=== PATIENT | female | born 1945 | race Caucasian/White ===

== ENCOUNTER 2017-12-26 21:56 | Emergency (ER) | payer MEDICARE, MEDICAID ==
[2017-12-26] MEDS ORDERED: METHYLPREDNISOLONE PF 125MG/VIAL IVPB ONE (22:22)
[2017-12-26] MEDS ORDERED: IPRATROPIUM/ALBUTEROL (0.5MG/3MG) NEB INH ONE (22:22)
--- NOTE | 2017-12-26 22:29 | Emergency Department Record ---
History of Present Illness - General Chief Complaint: Cough Stated Complaint: COUGH,BEBA,LOW GRADE FEAVER Time Seen by Provider: 12/26/17 22:22 Source: Patient, Family Mode of Arrival: Wheelchair Limitations: Altered mental status - History of Present Illness Initial Comments: 72 yo female presents to ED for progressively for the past 4-5 days. Family at the bedside reports cough symptoms as well, however history is limited due to dementia. Patient was given a puff of albuterol at her [facility] home, but was unsure how to use the device and delivery is questionable. MD Complaint: Cough Onset/Timin -: Days(s) Severity: Moderate Consistency: Constant Improves With: Nothing Worsens With: Nothing Treatments Prior to Arrival: Other (albuterol) - Related Data Home Medications Medication Instructions Recorded Confirmed Last Taken Albuterol Sulfate [Proair Hfa] 1 - 2 puff IH .EVERY 4-6 HOURS PRN 12/26/1712/26 Unknown Alendronate Sodium 70 mg PO WEEKLY 12/26/17 12/26/17 Unknown Hydrochlorothiazide [Hctz] 25 mg PO DAILY 12/26/17 12/26/17 Unknown Metoprolol Tartrate [Lopressor] 50 mg PO BID 12/26/17 12/26/17 Unknown Multivitamin [Multi-Vitamin Daily] 1 each PO DAILY 12/26/17 12/26/17 Unknown Potassium Chloride [Klor-Con] 20 meq PO DAILY 12/26/17 12/26/17 Unknown Venlafaxine HCl [Effexor] 75 mg PO DAILY 12/26/17 12/26/17 Unknown Previous Rx's Medication Instructions Recorded Albuterol Sulfate 0.083% [Neb] 3 ml NEB .EVERY 4-6 HOURS PRN #30 12/26/17 ml Nebulizer [Aeroneb Go Nebulizer] 1 each MC Q4HR PRN #1 each 12/26/17 Prednisone [Prednisone 20Mg] 20 mg PO TID #15 tab 12/26/17 Allergies Allergy/AdvReac Type Severity Reaction Status Date / Time amoxicillin [From Augmentin] Allergy PT UNSURE Verified 12/26/17 22:41 OF REACTION cephalexin [From Keflex] Allergy PT UNSURE Verified 12/26/17 22:41 OF REACTION clavulanic acid Allergy PT UNSURE Verified 12/26/17 22:41 [From Augmentin] OF REACTION erythromycin base Allergy PT UNSURE Verified 12/26/17 22:41 OF REACTION lactose Allergy PT UNSURE Verified 12/26/17 22:41 OF REACTION loratadine [From Claritin] Allergy PT UNSURE Verified 12/26/17 22:41 OF REACTION Penicillins Allergy PT UNSURE Verified 12/26/17 22:41 OF REACTION tetanus toxoid, adsorbed Allergy PT UNSURE Verified 12/26/17 22:41 OF REACTION Review of Systems Constitutional: Reports: Fever Respiratory: Reports: Cough, Wheezes Physical Exam - General General Appearance: Alert, Cooperative, Mild distress Limitations: No limitations - Head Head exam: Atraumatic, Normocephalic, Normal inspection Head exam detail: negative: Abrasion, Contusion, Rojo's sign, General tenderness, Hematoma, Laceration - Eye Eye exam: Normal appearance. negative: Conjunctival injection, Periorbital swelling, Periorbital tenderness, Scleral icterus - ENT Ear exam: negative: Auricular hematoma, Auricular trauma Nasal Exam: negative: Active bleeding, Discharge, Dried blood, Foreign body Mouth exam: negative: Drooling, Laceration, Muffled voice, Tongue elevation - Neck Neck exam: Normal inspection. negative: Meningismus, Tenderness - Respiratory Respiratory exam: Prolonged expiratory, Wheezes. negative: Rhonchi, Stridor - Cardiovascular Cardiovascular Exam: Regular rate, Normal rhythm, Normal heart sounds - GI/Abdominal GI/Abdominal exam: Soft. negative: Rebound, Rigid, Tenderness - Rectal Rectal exam: Deferred - exam: Deferred - Extremities Extremities exam: Normal inspection. negative: Calf tenderness, Pedal edema, Tenderness - Back Back exam: Denies: CVA tenderness (R), CVA tenderness (L) - Neurological Neurological exam: Alert, Normal gait - Psychiatric Psychiatric exam: Normal affect, Normal mood - Skin Skin exam: Normal color. negative: Abrasion Type of lesion: negative: abrasion Course - Reevaluation(s) Reevaluation #1: 12/26/17 22:51 Labs reviewed and are grossly unremarkable for an acute process. Patient is going for CXR at this time. Reevaluation #2: 12/26/17 23:09 CXR: No acute process Dextroscoliosis spine Patient and family were updated on all results, patient reports significant improvement in her wheezing symptoms. Patient and family are in agreement with going back to her [facility] home this evening with a Rx for prednisone and albuterol as directed. Patient's repeat Biox 92-95%, she has no respiratory distress, and the patient is asking to go home at this time. Patient appears stable for discharge at this time. Medical Decision Making - Lab Data Result diagrams: 12/26/17 22:30 12/26/17 22:30 Disposition Disposition: Discharge Clinical Impression: COPD exacerbation, Bronchitis Disposition: Home, Self-Care Condition: (2) Stable Instructions: Acute Bronchitis (ED) Additional Instructions: Return to ED if your symptoms worsen or if you have any concerns. Prednisone and Albuterol as directed. Follow-up with your family doctor in 3-5 days as directed. Prescriptions: Nebulizer [Aeroneb Go Nebulizer] 1 each MC Q4HR PRN #1 each PRN Reason: Wheezing Albuterol Sulfate 0.083% [Neb] 3 ml NEB .EVERY 4-6 HOURS PRN #30 ml PRN Reason: Difficulty In Breathing Prednisone [Prednisone 20Mg] 20 mg PO TID #15 tab Forms: Patient Portal Access Time of Disposition: 23:12 Quality - Quality Measures Quality Measures: N/A - Blood Pressure Screening Does Patient Have Any of the Following: No Blood Pressure Classification: Hypertensive Reading Systolic Measurement: 164 Diastolic Measurement: 72 Screening for High Blood Pressure: < First Hypertensive BP, F/U Documented > [ [id number]] First Hypertensive Follow-up Interventions: Referral to alternative/primary care provider.
[2017-12-26 22:36] LABS: BASO % 0.4 % (0-6); EOS % 5.2 % (0-6); GRAN % 55.6 % (47-80); HEMATOCRIT 40.8 % (35.0-47.0); HEMOGLOBIN 13.4 gm/dl (11.6-16.0); LYMPH % 30.2 % (16-45); MEAN CELL VOLUME 92.1 fl (81-97); MEAN CORPUSCULAR HEMOGLOBIN 30.2 pg (27-33); MEAN CORPUSCULAR HGB CONC 32.8 g/dl (32-36); MEAN PLATELET VOLUME 10.4 fl (7.4-10.4); MONO % 8.6 % (0-9); PLATELET COUNT 189 K/uL (130-400); RED BLOOD COUNT 4.43 M/uL (3.80-5.40); RED CELL DISTRIBUTION WIDTH 14.3 % (11.5-14.5); WHITE BLOOD COUNT W/O DIFF 7.7 K/uL (4.2-12.2)
[2017-12-26 22:44] LABS: BLOOD UREA NITROGEN 20 mg/dL (8-23); CREATININE 0.5 mg/dL (0.5-0.9); EST GLOMERULAR FILTRATION RATE > 60 mL/min
[2017-12-26 22:45] LABS: TOTAL PROTEIN 8.1 g/dL (6.6-8.7)
[2017-12-26 22:47] LABS: GLUCOSE,RANDOM 100 mg/dL (74-109)
[2017-12-26 22:50] LABS: ALB/GLOB RATIO 0.9 (1.1-1.8); ALBUMIN 3.8 g/dL (4.0-5.0); ALKALINE PHOSPHATASE 59 U/L (35-104); ALT/SGPT 31 U/L (<33); AST/SGOT 30 U/L (10.0-35.0)
--- NOTE | 2017-12-28 00:43 | RADIOLOGY REPORT ---
EXAM: CHEST 2 VIEWS HISTORY: PATIENT HAS SHORTNESS OF BREATH. TECHNIQUE: Two views of the chest are provided without comparison examinations. FINDINGS: The cardiac silhouette is within normal limits for size and contour. Patient has significant dextroconvex scoliosis of the thoracic spine and levoconvex scoliosis of the lumbar spine. There is no radiographic evidence of a focal infiltrate, pleural effusion or pneumothorax. IMPRESSION: NO RADIOGRAPHIC EVIDENCE OF AN ACUTE INTRATHORACIC PROCESS. DEXTROCONVEX SCOLIOSIS OF THE THORACIC SPINE AND LEVOCONVEX SCOLIOSIS OF THE LUMBAR ARE NOTED DESCRIBED. JOB NUMBER: [id number] MTDD
== END 2017-12-26 23:27 | disposition home or self-care (01) ==
LOC: ER 21:56
DX: J44.1 Chronic obstructive pulmonary disease with (acute) exacerbation (principal); J20.9 Acute bronchitis, unspecified; J44.0 Chronic obstructive pulmonary disease with (acute) lower respiratory infection; F03.90 Unspecified dementia, unspecified severity, without behavioral disturbance, psychotic disturbance, mood disturbance, and anxiety; F17.210 Nicotine dependence, cigarettes, uncomplicated
CPT/HCPCS: 71046; 80053; 85025; 94640; 96374; 99284; J2930